=== PATIENT | male | born 1970 | race Asian ===

== ENCOUNTER 2023-01-17 07:24 | Day surgery (SDC) | payer OTHER ==
[~2023-01-17] VITALS: Ht 162.6 cm; Wt 77.1 kg
[2023-01-17] MEDS ORDERED: MIDAZOLAM 5 MG/5 ML VIAL ONE (09:44)
[2023-01-17] MEDS ORDERED: fentaNYL citrate 0.05 MG/ML VIAL ONE (09:45)
[2023-01-17] MEDS ORDERED: LIDOCAINE 2% 100 MG/5 ML UJET TP ONE (09:46)
== END 2023-01-17 10:55 | disposition home or self-care (01) ==
LOC: MDS 07:24 → MMU 07:25 → MDS 10:55
PROVIDERS: ATTEND Internal Medicine Gastroenterology
DX: Z12.11 Encounter for screening for malignant neoplasm of colon (principal); K63.5 Polyp of colon; I13.2 Hypertensive heart and chronic kidney disease with heart failure and with stage 5 chronic kidney disease, or end stage renal disease; E11.22 Type 2 diabetes mellitus with diabetic chronic kidney disease; I50.9 Heart failure, unspecified; N18.6 End stage renal disease; E78.5 Hyperlipidemia, unspecified; Z99.2 Dependence on renal dialysis; Z90.49 Acquired absence of other specified parts of digestive tract; Z79.899 Other long term (current) drug therapy
CPT/HCPCS: 45385; 82948; J3010; J2250